=== PATIENT | male | born 1995 | race Caucasian/White ===

== ENCOUNTER 2024-11-11 06:15 | Observation (INO) ==
--- NOTE | 2024-11-11 06:34 | Emergency Department Note ---
Impression & Plan Abdominal pain ED Provider Note NAME: BENEDICTO FRANCIS AGE: 29 SEX: M : 1995 ARRIVES VIA: Walk-In INFORMANT: Patient, ED PROVIDER(S): Matthew Dietz DO CHIEF COMPLAINT: Abdominal pain HPI: The patient is a 29-year-old male who presented to the emergency department for abdominal pain. The patient started having abdominal pain at approximately 3:00 this morning. The patient has had nausea but no vomiting. He denies having any rectal bleeding or hematemesis. The patient denies having any recent trauma. He did feel warm but did not take his temperature. He does not think he has a fever. 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 He was a premature . The patient has not had problems since. He denies having any gallbladder problems. ROS: See above HPI for pertinent positives & negatives. A total of 10 systems reviewed and were otherwise negative. PAST MEDICAL HISTORY: See Below PAST SURGICAL HISTORY: See Below FAMILY HISTORY: See Below SOCIAL HISTORY: See Below HOME MEDICATIONS: See Below ALLERGIES: See Below VITALS: See Below PHYSICAL EXAMINATION: GENERAL: The patient is awake and alert. The patient appears anxious and uncomfortable. EYES: The conjunctivae are clear. The pupils are round and reactive. EARS, NOSE, MOUTH AND THROAT: The nose is without any evidence of any deformity. NECK: The neck is nontender and supple. RESPIRATORY: Normal respiratory effort is noted there is no evidence of wheezing rhonchi or rales CARDIOVASCULAR: Regular rate and rhythm noted there no murmurs rubs or gallops normal S1 normal S2. GASTROINTESTINAL: The abdomen is distended. There is upper abdominal tenderness specifically in the epigastric as well as right upper quadrant. There is some guarding in the epigastric region. MUSCULOSKELETAL/EXTREMITIES: There is no evidence of gross deformity full range of motion is noted in the hips and shoulders. SKIN: There is no obvious evidence of any rash. There are no petechiae, pallor or cyanosis noted. NEUROLOGIC: Patient is awake alert and oriented x3 MEDICAL DECISION MAKING: The patient is a 29-year-old male who presented to the emergency department for an evaluation of upper abdominal pain. The patient did have very significant abdominal pain on my physical exam. I discussed the patient's laboratory and radiographic studies with him. He was treated with pain medication in the emergency department. On reevaluation he was somewhat improved. CAT scan does appear to be consistent with a possible tip appendicitis although the patient's physical exam is not consistent with appendicitis. Because of this as well as the patient's history of necrotizing or colitis I did discuss his condition with the on-call general surgical group. They evaluated the patient in the emergency department. They agree that this does not appear to be consistent with an obvious appendicitis. For this reason they will observe the patient in the hospital to determine if any further intervention is necessary. Triage Nursing notes reviewed. Prior medical records reviewed Vital Signs: reviewed and remarkable for elevated blood pressure. Differential diagnosis: Etiologies such as appendicitis, diverticulitis, obstruction, inflammatory bowel disease, renal colic, PUD, biliary pathology, pancreatitis, mesenteric ischemia, aortic pathology, infections, genitourinary, UTI, perforated viscus, as well as others were entertained. ER treatment provided: See below Diagnostics interpreted by me: ECG: Pain Cardiac Monitoring: An order was placed for continuous cardiac monitoring. The monitor shows a rate of 93 bpm with sinus rhythm. Laboratory studies: As stated above and show below. Imaging studies: See below. Radiographic imaging was reviewed by myself Consultation(s): I discussed this case with Aparna who is on-call for general surgery. Past Med/Surg History Problem List (Updated 11/11/24 @ 11:34 by Matthew Dietz DO) Nausea Abdominal pain (Acute) Laceration of left index finger w/o foreign body w/o damage to nail (Acute) Medical History No pertinent past medical history Social History Smoking Status: Never smoker Tobacco Type: E-cigarettes / Vaping Preferred Language: Romanian Feels Safe at Home: Yes Allergies Allergies Allergy/AdvReac Type Severity Reaction Status Date / Time No Known Allergies Allergy Verified 11/11/24 08:30 Home Meds Home Medications Medication Instructions Recorded Confirmed loratadine 10 mg tablet (Claritin) 10 mg PO DAILY PRN Congestion 11/24/22 11/11/24 Results & Data (ED) Vital Signs Vital Signs - 24 hr 11/11/24 06:20 11/11/24 06:35 11/11/24 06:50 Temperature 36.5 C Temperature Source Temporal Artery Scan Pulse Rate 96 H 92 H Pulse Rate from SpO2 Sensor Pulse Rhythm Regular Pulse Strength Normal Respiratory Rate 18 Respiratory Effort / Characteristics Non-Labored Spontaneous Respiratory Depth Normal Respiratory Pattern Regular Blood Pressure 142/99 H Blood Pressure Mean 113 Blood Pressure Position Sitting Pulse Oximetry 98 97 Oxygen Delivery Method Room Air Nasal Cannula Oxygen Flow Rate 2 Sepsis Recent Fever Within 48 Hours Yes Sepsis New/Unexplained Change in Mental Status No Sepsis Action Taken by Nursing No Action Required 11/11/24 07:12 11/11/24 07:48 11/11/24 08:06 Temperature Temperature Source Pulse Rate 85 91 H Pulse Rate from SpO2 Sensor 83 Pulse Rhythm Pulse Strength Respiratory Rate 20 17 Respiratory Effort / Characteristics Respiratory Depth Respiratory Pattern Blood Pressure 128/81 Blood Pressure Mean 97 Blood Pressure Position Pulse Oximetry 98 Oxygen Delivery Method Oxygen Flow Rate Sepsis Recent Fever Within 48 Hours Sepsis New/Unexplained Change in Mental Status Sepsis Action Taken by Nursing 11/11/24 08:06 11/11/24 08:33 11/11/24 08:51 Temperature Temperature Source Pulse Rate 69 97 H 77 Pulse Rate from SpO2 Sensor 68 95 H 82 Pulse Rhythm Pulse Strength Respiratory Rate 13 14 Respiratory Effort / Characteristics Respiratory Depth Respiratory Pattern Blood Pressure Blood Pressure Mean Blood Pressure Position Pulse Oximetry 95 96 95 Oxygen Delivery Method Oxygen Flow Rate Sepsis Recent Fever Within 48 Hours Sepsis New/Unexplained Change in Mental Status Sepsis Action Taken by Nursing 11/11/24 09:00 11/11/24 09:03 11/11/24 09:30 Temperature Temperature Source Pulse Rate 104 H 100 H Pulse Rate from SpO2 Sensor 103 H 98 H Pulse Rhythm Pulse Strength Respiratory Rate 16 12 Respiratory Effort / Characteristics Respiratory Depth Respiratory Pattern Blood Pressure 150/117 H Blood Pressure Mean 129 Blood Pressure Position Pulse Oximetry 96 95 Oxygen Delivery Method Oxygen Flow Rate Sepsis Recent Fever Within 48 Hours Sepsis New/Unexplained Change in Mental Status Sepsis Action Taken by Usp Medications Current Medication List: was personally reviewed by me Laboratory Data Attestation: I reviewed the patient's lab results. 11/11/24 06:30 11/11/24 06:30 Lab Results 11/11/24 11/11/24 11/11/24 Range/Units 06:28 06:30 06:36 WBC 5.90 (4.8-10.8) K/ul RBC 5.33 (4.70-6.10) M/uL Hgb 15.9 (14.0-18.0) g/dl POC Hgb 16.0 (14.0-18.0) g/dl Hct 45.2 (42.0-52.0) % POC Hct 47 (42-52) % MCV 84.8 (80.0-100.0) fL MCH 29.8 (25.0-34.0) pg MCHC 35.2 (32.0-36.0) g/dL RDW Std Deviation 37.1 (36.4-46.3) fL RDW Coeff of Brandon 12.1 (11.5-14.5) % Plt Count 229 (130-400) K/uL MPV 10.5 (9.4-12.4) fL Immature Gran % (Auto) 0.2 % Neut % (Auto) 56.4 % Lymph % (Auto) 31.7 % Brooks % (Auto) 8.8 % Eos % (Auto) 2.4 % Baso % (Auto) 0.5 % Neut # (Auto) 3.33 (1.40-6.50) K/uL Lymph # (Auto) 1.87 (1.20-3.40) K/uL Brooks # (Auto) 0.52 (0.11-0.59) K/uL Eos # (Auto) 0.14 (0.00-0.50) K/uL Baso # (Auto) 0.03 (0.00-0.20) K/uL Immature Gran # (Auto) 0.01 (0.01-0.20) K/uL POC Sodium 141 (135-144) mmol/L Sodium 140 (136-145) mmol/L POC Potassium 3.9 (3.3-5.0) mmol/L Potassium 3.9 (3.5-5.1) mmol/L POC Chloride 104 (101-112) mmol/L Chloride 106 (98-107) mmol/L Carbon Dioxide 25 (21-32) mmol/L POC Total CO2 24 (24-31) mmol/L Anion Gap 9 (3-11) POC Anion Gap 18.0 (16-25) mmol/L POC BUN 15 (7-18) mg/dl BUN 15 (6-23) mg/dl Creatinine 0.83 (0.6-1.4) mg/dl POC Creatinine 0.9 (0.6-1.3) mg/dl Est Cr Clr Drug Dosing 156.8 ml/min eGFR 122.26 BUN/Creatinine Ratio 18.1 (10-20) Glucose 136 H (70-99(Fasting)) mg/dl POC Glucose (other) 135 H (70-99) mg/dl Calcium 9.1 (8.6-10.3) mg/dl POC Ioniz Calcium Sandy 1.16 (1.12-1.32) mmol/l Total Bilirubin 0.9 (0.2-1.0) mg/dl AST 24 (13-39) U/L ALT 36 (7-52) U/L Alkaline Phosphatase 69 (34-104) U/L Total Protein 8.0 (6.0-8.3) gm/dl Albumin 4.8 (3.4-5.0) gm/dl Globulin 3.2 (2.5-4.0) gm/dl Albumin/Globulin Ratio 1.5 (0.9-2) Lipase 15 (11-82) U/L Urine Color Yellow Urine Appearance Clear (Clear) Urine pH 5.5 (4.5-7.5) Ur Specific [place] >= 1.030 (1.000-1.030) Urine Protein 1+ H (Negative) Urine Glucose (UA) Negative (Negative) Urine Ketones Trace H (Negative) Urine Blood Negative (Negative) Urine Nitrite Negative (Negative) Urine Bilirubin Negative (Negative) Urine Urobilinogen Negative (Negative) Ur Leukocyte Esterase Negative (Negative) Urine RBC 0-2 (0-2) /hpf Urine WBC 0-5 (0-5) /hpf Ur Epithelial Cells 0-2 (0-2) /hpf Urine Bacteria 2+ H (None Seen) Hyaline Casts Present A (None Presnt) /lpf Urine Mucus Present A (None Prsent) Administered Medications Morphine Sulfate (Morphine Sulfate 4 Mg/Ml 1 Ml Carp\\Vial) 4 mg IV Q15M PRN PRN Reason: Pain Stop: 11/25/24 06:30 Last Admin: 11/11/24 10:28 Dose: 4 mg Documented By: Admin: 11/11/24 06:36 Dose: 4 mg Documented By: AMIRA Discontinued Medications Ioversol (Optiray 320 100ml) 94 ml IV ONCE ONE Stop: 11/11/24 07:19 Last Admin: 11/11/24 07:18 Dose: 94 ml Documented By: ALETHA Ondansetron HCl (Ondansetron Inj 2 Mg/Ml 2 Ml Vial) 4 mg IV NOW STA Stop: 11/11/24 06:32 Last Admin: 11/11/24 06:36 Dose: 4 mg Documented By: AMIRA Imaging Data Attestation: I personally reviewed and interpreted this imaging study as follows: My Impression: CT of the abdomen and pelvis was obtained in the emergency department. My interpretation is no free air or signs of bowel obstruction, final report below. Radiologist's Impression: Abdomen/Pelvis CT 11/11/24 07:06 EXAM: CT abd pelvis IV con only CLINICAL HISTORY: Severe abdominal pain with nausea. hx of constipation or diverticulitis. gastro. TECHNIQUE: CT of the abdomen and pelvis was performed with IV contrast was administrated 94ml Optiary 320 mg/ml, with the following protocol: axial images with, and reconstructed coronal and sagittal images.Vic of the following dose reduction techniques was utilized for this exam: Automated exposure control, adjustment of the mA and/or kV according to patient size, and use of iterative reconstruction. COMPARISON: None. FINDINGS: Abdomen: Liver: Enlarged in size measuring 18.8 cm with fat infiltration. No focal lesions, cysts, or masses were identified. Hepatic vasculature and biliary ducts are unremarkable. Gallbladder and Biliary System: The gallbladder is normal in size and shape. No wall thickening, pericholecystic fluid, or gallstones were identified. The common bile duct is normal in caliber without dilation. Pancreas: Pancreatic head, body, and tail are visualized and appear normal in size and density. No pancreatic masses or calcifications were noted. The pancreatic duct is not dilated. Spleen: Normal in size, shape, and density. No splenic lesions or masses were identified. Kidneys and Adrenal Glands: Simple cysts of 13 mm at lower pole of right kidney and upper pole of left kidney. Both kidneys are normal in size, shape, and position. Cortical thickness is within normal limits. No renal calculi or hydronephrosis. Adrenal glands are unremarkable with no evidence of masses or hyperplasia. Pelvis: Urinary Bladder: Normal in contour and wall thickness. No intraluminal lesions identified. Prostate: Normal in size and contour. No focal lesions or masses identified. Seminal Vesicles: Normal in size and appearance. No abnormalities noted. Rectum and Sigmoid Colon: Normal wall thickness and no evidence of mass. Peritoneal and Retroperitoneal Structures: No free fluid or abnormal fluid collections were identified within the abdomen or pelvis. No lymphadenopathy was noted. Bowel: Tip of appendix dilated measuring 13 mm in caliber and showing appendicolith in its non dilated segment. The visualized bowel loops are normal in caliber and appearance. No evidence of bowel obstruction or wall thickening. Bones and Soft Tissues: Pelvic bones and soft tissues are unremarkable. No fractures or abnormal masses were identified. IMPRESSION: 1. Tip of appendix dilated measuring 13 mm in caliber and showing appendicolith in its non dilated segment suggesting tip appendicitis. 2. Fatty hepatomegaly. 3. Bilateral renal simple cysts. Electronically signed by Simran Gerber 11-11-2024 08:49 AM Discharge Plan Visit Data Chief Complaint: Abdominal Pain Stated Complaint: ABD PAIN,NAUSEA,"TWISTING FEELING" ED Provider: Matthew Dietz Discharge Problem: Abdominal pain Patient Disposition: Being Evaluated by Hospitalist Discharge Problem: Abdominal pain Qualifiers: Abdominal location: upper abdomen, unspecified Qualified Code(s): R10.10 - Upper abdominal pain, unspecified
[2024-11-11] MEDS: MoRPHine SULFATE 4 MG/ML 1 ML CARP\\VIAL IV PRN (06:36)
[2024-11-11] MEDS: ONDANSETRON INJ 2 MG/ML 2 ML VIAL IV STA (06:36)
[2024-11-11 06:48] LABS: iSTAT Creatinine 0.9 mg/dl (0.6-1.3); iSTAT Ionized Calcium 1.16 mmol/l (1.12-1.32); iSTAT Potassium 3.9 mmol/L (3.3-5.0)
[2024-11-11 06:57] LABS: Basophils # (auto) 0.03 K/uL (0.00-0.20); Basophils % (auto) 0.5 %; Eosinophils # (auto) 0.14 K/uL (0.00-0.50); Eosinophils % (auto) 2.4 %; Hematocrit (blood only) 45.2 % (42.0-52.0); Hemoglobin 15.9 g/dl (14.0-18.0); Immature Granulocytes # (auto) 0.01 K/uL (0.01-0.20); Immature Granulocytes % (auto) 0.2 %; Lymphocytes # (auto) 1.87 K/uL (1.20-3.40); Lymphocytes % (auto) 31.7 %; Mean Corpuscular Hemoglobin 29.8 pg (25.0-34.0); Mean Corpuscular Hgb Conc 35.2 g/dL (32.0-36.0); Mean Corpuscular Volume 84.8 fL (80.0-100.0); Mean Platelet Volume 10.5 fL (9.4-12.4); Monocytes # (auto) 0.52 K/uL (0.11-0.59); Monocytes % (auto) 8.8 %; Neutrophils # (auto) 3.33 K/uL (1.40-6.50); Neutrophils % (auto) 56.4 %; Platelet Count 229 K/uL (130-400); RDW Coefficient of Variation 12.1 % (11.5-14.5); RDW Standard Deviation 37.1 fL (36.4-46.3); Red Blood Count 5.33 M/uL (4.70-6.10)
[2024-11-11 07:03] LABS: Albumin Globulin Ratio 1.5 (0.9-2); Albumin Level 4.8 gm/dl (3.4-5.0); BUN Creatinine Ratio 18.1 (10-20); Bilirubin,Total 0.9 mg/dl (0.2-1.0); Calcium 9.1 mg/dl (8.6-10.3); Creatinine Clr Calc Pharmacy 156.8 ml/min; Globulin 3.2 gm/dl (2.5-4.0); Potassium 3.9 mmol/L (3.5-5.1)
[2024-11-11 07:07] LABS: Appearance Urine Clear (Clear); Bilirubin Urine Negative (Negative); Blood Urine Negative (Negative); Color Urine Yellow; Glucose Urine UA Negative (Negative); Ketones Urine Trace (Negative); Leukocyte Esterase Urine Negative (Negative); Nitrite Urine Negative (Negative); Protein Urine 1+ (Negative); Specific Gravity Urine >= 1.030 (1.000-1.030); Urobilinogen Urine Negative (Negative); pH Urine 5.5 (4.5-7.5)
[2024-11-11 07:18] LABS: Bacteria Urine 2+ (None Seen); Epithelial Cell Urine 0-2 /hpf (0-2); RBC Urine 0-2 /hpf (0-2); WBC Urine 0-5 /hpf (0-5)
[2024-11-11] MEDS: OPTIRAY 320 100ml IV ONE (07:18)
[2024-11-11 07:19] LABS: Hyaline Casts Urine Present /lpf (None Presnt); Mucus Urine Present (None Prsent)
--- NOTE | 2024-11-11 08:49 | CT Scan Report ---
EXAM: CT abd pelvis IV con only CLINICAL HISTORY: Severe abdominal pain with nausea. hx of constipation or diverticulitis. gastro. TECHNIQUE: CT of the abdomen and pelvis was performed with IV contrast was administrated 94ml Optiary 320 mg/ml, with the following protocol: axial images with, and reconstructed coronal and sagittal images.Vic of the following dose reduction techniques was utilized for this exam: Automated exposure control, adjustment of the mA and/or kV according to patient size, and use of iterative reconstruction. COMPARISON: None. FINDINGS: Abdomen: Liver: Enlarged in size measuring 18.8 cm with fat infiltration. No focal lesions, cysts, or masses were identified. Hepatic vasculature and biliary ducts are unremarkable. Gallbladder and Biliary System: The gallbladder is normal in size and shape. No wall thickening, pericholecystic fluid, or gallstones were identified. The common bile duct is normal in caliber without dilation. Pancreas: Pancreatic head, body, and tail are visualized and appear normal in size and density. No pancreatic masses or calcifications were noted. The pancreatic duct is not dilated. Spleen: Normal in size, shape, and density. No splenic lesions or masses were identified. Kidneys and Adrenal Glands: Simple cysts of 13 mm at lower pole of right kidney and upper pole of left kidney. Both kidneys are normal in size, shape, and position. Cortical thickness is within normal limits. No renal calculi or hydronephrosis. Adrenal glands are unremarkable with no evidence of masses or hyperplasia. Pelvis: Urinary Bladder: Normal in contour and wall thickness. No intraluminal lesions identified. Prostate: Normal in size and contour. No focal lesions or masses identified. Seminal Vesicles: Normal in size and appearance. No abnormalities noted. Rectum and Sigmoid Colon: Normal wall thickness and no evidence of mass. Peritoneal and Retroperitoneal Structures: No free fluid or abnormal fluid collections were identified within the abdomen or pelvis. No lymphadenopathy was noted. Bowel: Tip of appendix dilated measuring 13 mm in caliber and showing appendicolith in its non dilated segment. The visualized bowel loops are normal in caliber and appearance. No evidence of bowel obstruction or wall thickening. Bones and Soft Tissues: Pelvic bones and soft tissues are unremarkable. No fractures or abnormal masses were identified. IMPRESSION: 1. Tip of appendix dilated measuring 13 mm in caliber and showing appendicolith in its non dilated segment suggesting tip appendicitis. 2. Fatty hepatomegaly. 3. Bilateral renal simple cysts. Electronically signed by Simran Gerber 11-11-2024 08:49 AM
--- NOTE | 2024-11-11 10:28 | Surgery Consultation ---
Date of Consultation November 11, 2024 Assessment & Plan (1) Abdominal pain: Doubt appendicitis. CT scan reviewed. Will admit the patient for observation and symptom control. I also want to obtain an ultrasound of his gallbladder. I am not going to give him antibiotics and we will reevaluate him over the next 24 hours. If his symptoms worsen we may end up performing a laparoscopy/appendectomy. He agrees with the plan. (2) Nausea: History of Present Illness History of Present Illness Terrence is a pleasant 29-year-old male who has had a couple days of vague abdominal discomfort potential low-grade fever. Last night in the middle of the night he woke up to acute upper abdominal pain primarily in the epigastric with radiation mostly to the left upper quadrant. He does have associated nausea although no vomiting. Allergies Allergy/AdvReac Type Severity Reaction Status Date / Time No Known Allergies Allergy Verified 11/11/24 08:30 Home Medications Medication Instructions Recorded Confirmed Type loratadine 10 mg tablet (Claritin) 10 mg PO DAILY PRN Congestion 11/24/22 11/11/24 History Patient History Medical History No pertinent past medical history Social History Smoking Status: Never smoker Tobacco Type: E-cigarettes / Vaping Preferred Language: Peruvian Feels Safe at Home: Yes Review of Systems Review of Systems: All systems reviewed & are unremarkable except as noted in HPI & below Physical Exam Constitutional: WD/WN, vitals as above no acute distress and not ill appearing Eyes: PERRL, conjunctivae normal, anicteric sclerae EOM intact bilaterally ENMT: external ear and nose normal, oropharynx normal Ears: no hearing impairment Neck: trachea midline, no thyromegaly Respiratory: normal respiratory effort; no respiratory distress and does not use accessory muscles Cardiovascular: Rate/Rhythm: regular rate and regular rhythm Gastrointestinal (Abdomen): Soft. Mild epigastric tenderness to palpation. No guarding or rebound. N egative right lower quadrant tenderness. Skin: no rashes, warm and dry Psychiatric: Orientation: alert, oriented x 3 and cooperative Results & Data Vital Signs (Past 12 Hours) Vital Signs Temp Pulse Resp BP Pulse Ox O2 Del Method O2 Flow Rate 11/11/24 09:30 100 H 12 95 11/11/24 09:03 104 H 16 96 11/11/24 09:00 150/117 H 11/11/24 08:51 77 95 11/11/24 08:33 97 H 14 96 11/11/24 08:06 69 13 95 11/11/24 08:06 128/81 11/11/24 07:48 91 H 17 11/11/24 07:12 85 20 98 11/11/24 06:50 97 Nasal Cannula 2 11/11/24 06:35 92 H 11/11/24 06:20 36.5 C 96 H 18 142/99 H 98 Room Air PG Care Time/CCT Total # of Minutes Spent Total Time Spent with Patient: Total time spent is greater than 50% in coordination of care (as documented) at patient's floor/unit and/or counseling patient: Coding Level of Care Code 63591 OFFICE CONSULT LVL Diagnoses Abdominal pain R10.9 Nausea R11.0
[2024-11-11] MEDS ORDERED: HYDROmorphone INJ 0.5 MG/0.5 ML SYR IV PRN (11:35)
--- NOTE | 2024-11-11 11:47 | Ultrasound Report ---
US liver CLINICAL HISTORY: upper abdominal pain and nausea COMPARISON STUDY: CT of the abdomen and pelvis performed earlier today. FINDINGS: Hepatic echogenicity is increased. This is consistent with hepatic steatosis. There is fatt y sparing within the gallbladder fossa. There is no biliary ductal dilatation. The gallbladder is nor mal. There are no gallstones. There is no biliary ductal dilatation. A 2.3 cm anechoic right lower po le renal lesion favors a cyst. Pancreatic body is normal. Head and tail are obscured by overlying bow el gas. IMPRESSION: 1. No gallstones or biliary ductal dilatation. 2. Increased hepatic echogenicity consistent with hepatic steatosis. ACT 112: Negative or not required by law. Electronically signed by: Mauro Mccormick M.D. 11/11/2024 11:45 AM
[2024-11-11] MEDS: SODIUM CHLORIDE 0.9% 1,000 ML IV SCH (13:32)
[2024-11-11] MEDS: HYDROmorphone INJ 0.5 MG/0.5 ML SYR IV PRN (13:33)
[2024-11-12] MEDS: ACETAMINOPHEN 1,000 MG/100 ML VIAL IV PRN (04:43)
[2024-11-12 08:14] LABS: Basophils # (auto) 0.03 K/uL (0.00-0.20); Basophils % (auto) 0.3 %; Eosinophils # (auto) 0.04 K/uL (0.00-0.50); Eosinophils % (auto) 0.5 %; Hematocrit (blood only) 39.5 % (42.0-52.0); Hemoglobin 13.8 g/dl (14.0-18.0); Immature Granulocytes # (auto) 0.02 K/uL (0.01-0.20); Immature Granulocytes % (auto) 0.2 %; Lymphocytes # (auto) 1.97 K/uL (1.20-3.40); Lymphocytes % (auto) 22.9 %; Mean Corpuscular Hemoglobin 30.7 pg (25.0-34.0); Mean Corpuscular Hgb Conc 34.9 g/dL (32.0-36.0); Mean Platelet Volume 10.7 fL (9.4-12.4); Monocytes # (auto) 0.81 K/uL (0.11-0.59); Monocytes % (auto) 9.4 %; Neutrophils # (auto) 5.74 K/uL (1.40-6.50); Neutrophils % (auto) 66.7 %; Platelet Count 181 K/uL (130-400); RDW Coefficient of Variation 12.1 % (11.5-14.5); RDW Standard Deviation 39.3 fL (36.4-46.3); Red Blood Count 4.49 M/uL (4.70-6.10); White Blood Count 8.61 K/ul (4.8-10.8)
[2024-11-12 08:49] LABS: Albumin Globulin Ratio 1.6 (0.9-2); Albumin Level 4.1 gm/dl (3.4-5.0); BUN Creatinine Ratio 13.5 (10-20); Bilirubin,Total 1.6 mg/dl (0.2-1.0); C Reactive Protein 6.88 mg/dl (0-0.5); Calcium 8.4 mg/dl (8.6-10.3); Creatinine Clr Calc Pharmacy 174.7 ml/min; Globulin 2.6 gm/dl (2.5-4.0); Potassium 3.9 mmol/L (3.5-5.1); Total Protein 6.7 gm/dl (6.0-8.3)
--- NOTE | 2024-11-12 09:15 | Surgery Progress Note ---
Date of Service November 12, 2024 Assessment & Plan (1) Abdominal pain: Plan: pt here with upper abdominal pain + nausea founded to have questionable tip appendicitis on CT scan. no RLQ ttp in ER therefore we admitted the pt for observation WBC 8.6 and patient is afebrile off of antibiotics. CRP 6 and Tb 1.6, other LFTs within normal limits RUQ US obtained yesterday was negative for stones, biliary ductal dilation or stones This AM pain is overall improved from yesterday, but reports it's intermittent and he continues w/ nausea although he is hungry Will check up on pt later this AM and discuss further plan of care with surgeon as above. feeling overall better. Tbili up to 1.6. will obtain MRCP. NPO for now. if MRCP negative will give clears and repeat labs tomorrow. (2) Nausea: Admission and Anticipated Discharge Date Admission Date: November 11, 2024 Subjective Patient feels somewhat better overall. He reports his upper abdominal pain is better than yesterday but has been coming and going. No RLQ discomfort reported. He remains with nausea, no vomiting. He does report hunger Physical Exam Physical Exam: awake, alert Gastrointestinal (Abdomen): Percussion/Palpation: abdomen soft; abdomen nontender (abdominal discomfort improved from yesterday in epigastric region. ) no localized rlq ttp, mild R flank discomfort Results & Data Vital Signs (Past 12 Hours) Vital Signs Temp Pulse Resp BP Pulse Ox O2 Del Method 11/12/24 07:15 98.2 F 105 H 20 124/73 96 Room Air PG Care Time/CCT Total # of Minutes Spent Total Time Spent with Patient: Total time spent is greater than 50% in coordination of care (as documented) at patient's floor/unit and/or counseling patient: Coding Level of Care Code 60756 SUB INP/OBS CARE 11/28MIN Diagnoses Abdominal pain R10.10 Abdominal location: upper abdomen, unspecified Nausea R11.0 (1) Abdominal pain Abdominal location: upper abdomen, unspecified Qualified Code(s): R10.10 - Upper abdominal pain, unspecified
--- NOTE | 2024-11-12 12:14 | Magnetic Resonance Report ---
MRCP CLINICAL HISTORY: Tb elevated w/ epigastric pain,eval for choledocholithiasis. TECHNIQUE: Utilizing a 1.5 Nadira magnet and dedicated coil, multiplanar, multiecho imaging of the upp er abdomen was performed utilizing heavily T2 weighted pulsing sequences without IV contrast. COMPARISON STUDY: CT of the abdomen and pelvis and right upper quadrant ultrasound November 11, 2024. FINDINGS: There is no intra or extrahepatic biliary ductal dilatation. The common bile duct measures 4 mm in caliber. No common bile duct calculi identified although this exam is mildly compromised by m otion artifact. No gallstones are identified. The gallbladder is not distended. A few subcentimeter T 2 hyperintense inferior right hepatic lobe lesions are suboptimally assessed on unenhanced exam but l ikely benign. There is no pancreatic ductal dilatation. There is no peripancreatic fluid. T2 hyperint ense bilateral renal lesions are also suboptimally assessed on unenhanced exam however favors cysts. Right lower pole renal lesion were shown to represent a cyst on prior ultrasound. There is no abdomin al lymphadenopathy or ascites. Caliber of visualized small and large bowel are normal. Hepatic steato sis is better depicted on prior ultrasound. IMPRESSION: 1. No biliary ductal dilatation. No common bile duct calculi identified although exam mildly compromi sed by motion artifact. 2. No gallstones by MRI. No evidence for acute cholecystitis. ACT 112: Negative or not required by law. Electronically signed by: Mauro Mccormick M.D. 11/12/2024 12:12 PM
[2024-11-12] MEDS: OPTIRAY 320 100ml IV ONE (21:25)
--- NOTE | 2024-11-12 22:55 | CT Scan Report ---
Exam(s): CT ABDOMEN + PELVIS With Contrast IV Amt: 90 ml optiray 320 EXAM: CT Abdomen and Pelvis With Intravenous Contrast CLINICAL HISTORY: Reason for exam: repeat CT to eval for possibly acute appendicitis. TECHNIQUE: Axial computed tomography images of the abdomen and pelvis with intravenous contrast. CTDI is 28.1 mGy and DLP is 1420.74 mGy-cm. Automated exposure control was utilized for the study. A dose lowering technique was utilized adhering to the principles of ALARA. CONTRAST: Patient received 90 ml optiray 320 of IV contrast COMPARISON: CT abdomen/pelvis on 11/11/2024. Same day MRCP. FINDINGS: Lung bases: Unremarkable. No mass. No consolidation. ABDOMEN: Liver: Hepatic steatosis. Hepatomegaly. Gallbladder and bile ducts: Unremarkable. No calcified stones. No ductal dilation. Pancreas: Unremarkable. No mass. No ductal dilation. Spleen: Unremarkable. No splenomegaly. Adrenals: Unremarkable. No mass. Kidneys and ureters: Small hypodense lesions in the kidneys could be further evaluated with ultrasound, measuring greater than simple fluid attenuation. No hydronephrosis or obstructing ureteral stone. Stomach and bowel: Evaluation of the stomach is limited by underdistention. No mucosal thickening. No bowel obstruction. PELVIS: Appendix: Increased inflammatory changes and fluid along the appendix in the right lower quadrant. Appendicolith in the appendix but findings are concerning for acute appendicitis. Bladder: Mild prominence of the posterior aspect of the bladder wall may represent reactive inflammatory change. Reproductive: Unremarkable as visualized. ABDOMEN and PELVIS: Intraperitoneal space: Unremarkable. No free air. No significant fluid collection. Bones/joints: No acute fracture. No dislocation. Soft tissues: Small fat-containing right inguinal hernia. Vasculature: Unremarkable. No abdominal aortic aneurysm. Lymph nodes: Unremarkable. No enlarged lymph nodes. IMPRESSION: 1. Increased inflammatory changes and fluid along the appendix in the right lower quadrant. Appendicolith in the appendix but findings are concerning for acute appendicitis. 2. Hepatic steatosis. Hepatomegaly. Communications: Verify Receipt Electronically signed by: Pam Jolly M.D. 11/12/24 22:54 PM
--- NOTE | 2024-11-13 01:08 | Communication Note ---
Date of Service: November 12, 2024 Was called last evening around 1999 in regards to patient having worsening abdominal pain and increased HR into the 110s. The patient was also noted to h ave a low-grade fever later in the afternoon as well. Patient was seen and evaluated at bedside around 2029 this evening. He is nontoxic appearing and was resting comfortably. Patient states his abdominal pain is now mostly in the RLQ and is moderately tender with palpation. He also tells me he has been intermittently nauseous throughout the afternoon and evening. Discussed with attending surgeon, Dr. Fraga, and recommended patient undergoing repeat CT A/P this evening with results as below: IMPRESSION: 1. Increased inflammatory changes and fluid along the appendix in the right lower quadrant. Appendicolith in the appendix but findings are concerning for acute appendicitis. 2. Hepatic steatosis. Hepatomegaly. Given imaging findings along with patient's clinical exam, we will tentatively plan for surgical intervention today. Keep NPO, IV fluids to restart, and continue pain control. Will also initiate antibiotics.
[2024-11-13] MEDS: PIPERACILLIN/TAZOBACTAM 4.5 GM/100 ML BAG IV ONE (01:35)
[2024-11-13] MEDS: SODIUM CHLORIDE 0.9% 1,000 ML IV SCH (01:35)
[2024-11-13] MEDS: PIPERACILLIN/TAZOBACTAM 4.5 GM/100 ML BAG IV SCH (05:47)
[2024-11-13] MEDS: ONDANSETRON INJ 2 MG/ML 2 ML VIAL IV PRN (05:58)
[2024-11-13 07:25] LABS: Basophils # (auto) 0.03 K/uL (0.00-0.20); Basophils % (auto) 0.3 %; Eosinophils # (auto) 0.01 K/uL (0.00-0.50); Eosinophils % (auto) 0.1 %; Hematocrit (blood only) 36.9 % (42.0-52.0); Hemoglobin 12.9 g/dl (14.0-18.0); Immature Granulocytes # (auto) 0.04 K/uL (0.01-0.20); Immature Granulocytes % (auto) 0.4 %; Lymphocytes # (auto) 2.13 K/uL (1.20-3.40); Lymphocytes % (auto) 21.2 %; Mean Corpuscular Hemoglobin 30.4 pg (25.0-34.0); Mean Platelet Volume 11.1 fL (9.4-12.4); Monocytes # (auto) 0.91 K/uL (0.11-0.59); Monocytes % (auto) 9.1 %; Neutrophils # (auto) 6.93 K/uL (1.40-6.50); Neutrophils % (auto) 68.9 %; Platelet Count 164 K/uL (130-400); RDW Coefficient of Variation 11.9 % (11.5-14.5); RDW Standard Deviation 38.1 fL (36.4-46.3); Red Blood Count 4.24 M/uL (4.70-6.10); White Blood Count 10.05 K/ul (4.8-10.8)
[2024-11-13 07:58] LABS: Albumin Globulin Ratio 1.4 (0.9-2); Albumin Level 3.9 gm/dl (3.4-5.0); BUN Creatinine Ratio 8.8 (10-20); Bilirubin,Total 1.7 mg/dl (0.2-1.0); Calcium 8.1 mg/dl (8.6-10.3); Creatinine Clr Calc Pharmacy 161.6 ml/min; Globulin 2.8 gm/dl (2.5-4.0); Potassium 3.6 mmol/L (3.5-5.1); Total Protein 6.7 gm/dl (6.0-8.3)
--- NOTE | 2024-11-13 07:59 | Surgery Progress Note ---
Date of Service November 13, 2024 Assessment & Plan (1) Abdominal pain: Plan: Pt here initially here with epigastric abdominal pain and nausea found to have evidence of possible acute appy on admitting CT scan patient has not developed true RLQ discomfort until last night; work up for gallbladder etiology negative by RUQ US and MRCP he has been having some low grade temps with normal WBC counts (today 10) CT scan repeated overnight revealing worsening inflammation in the RLQ with associated appendicolith and concern for acute appy given confirmation on repeat CT as well as new/worsening RLQ pain we will proceed with lap appy today keep npo as above. discussed ct findings. discussed options/risks ( bleeding/infection/injury to an organ such as bowel/bladder/ureter, dvt/pe/mi/cva etc...). questions answered. will proceed this am with Lap appy (2) Nausea: Admission and Anticipated Discharge Date Admission Date: November 11, 2024 Subjective Patient reported RLQ pain overnight. He does feel a bit better this Am but has some discomfort in the RLQ which is somewhat better than overnight. some mild nausea controlled with meds Physical Exam Physical Exam: awake/alert, no distress Gastrointestinal (Abdomen): Percussion/Palpation: + abdomen tender (mild rlq ttp, epigastric ttp improved) and abdomen soft Results & Data Vital Signs (Past 12 Hours) Vital Signs Temp Pulse Resp BP Pulse Ox O2 Del Method 11/13/24 07:33 100.9 F H 112 H 20 114/71 91 Room Air 11/12/24 21:00 Room Air 11/12/24 19:54 99.8 F H 111 H 18 141/90 H 96 Room Air PG Care Time/CCT Total # of Minutes Spent Total Time Spent with Patient: Total time spent is greater than 50% in coordination of care (as documented) at patient's floor/unit and/or counseling patient: Coding Level of Care Code 43108 SUB INP/OBS CARE 11/28MIN Diagnoses Abdominal pain R10.10 Abdominal location: upper abdomen, unspecified Nausea R11.0 (1) Abdominal pain Abdominal location: upper abdomen, unspecified Qualified Code(s): R10.10 - Upper abdominal pain, unspecified
--- NOTE | 2024-11-13 08:22 | Anesthesiology Consultation ---
Date of Service November 13, 2024 Assessment & Plan Chart Review Chart Review: Acceptable Risk for Surgery and Patient NOT seen in Pre Admission Testing Consults Requested none History Surgery Operation Date: 11/13/24 07:00 Proposed Procedures p Laparoscopic Appendectomy - Bob Fraga DO Height/Weight Height: 5 ft 7 in Weight: 108.6 kg Allergies Allergy/AdvReac Type Severity Reaction Status Date / Time No Known Allergies Allergy Verified 11/11/24 08:30 Medications Home Medications Medication Instructions Recorded Confirmed Last Taken loratadine 10 mg tablet (Claritin) 10 mg PO DAILY PRN Congestion 11/24/22 11/11/24 Unknown Active Medications Generic Name Dose Route Start Last Admin Trade Name Freq PRN Reason Stop Dose Admin Hydromorphone HCl 0.5 mg 11/11/24 11:35 11/13/24 05:57 Hydromorphone Inj 0.5 Mg/0.5 Ml Syr IV 11/25/24 11:34 0.5 mg Q3H PRN Administration Pain (6,7,8,9,10) Acetaminophen 1,000 mg in 100 mls @ 400 mls/hr 11/11/24 11:35 11/12/24 16:24 Ofirmev IV 11/14/24 11:34 Infused Q8H PRN Infusion mild pain or fever Piperacillin Sod/Tazobactam Sod 4.5 gm in 100 mls @ 25 mls/hr 11/13/24 06:00 11/13/24 05:47 Zosyn IV 11/23/24 05:59 25 mls/hr Q8H JESSICA Administration Protocol Sodium Chloride 1,000 mls @ 125 mls/hr 11/13/24 01:15 11/13/24 01:35 Nss IV 11/14/24 01:14 125 mls/hr .Q8H JESSICA Administration Ondansetron HCl 4 mg 11/11/24 11:35 11/13/24 05:58 Ondansetron Inj 2 Mg/Ml 2 Ml Vial IV 12/11/24 11:34 4 mg Q4H PRN Administration Nausea And Vomiting Past Medical History Medical History No pertinent past medical history Social History Smoking Status: Current every day smoker Do You Dip or Chew Tobacco: No Hx Alcohol Use: No Hx Substance Use: No Physical Exam Vital Signs Last Vital Signs Temp 38.3 C H 11/13/24 07:33 Pulse 112 H 11/13/24 07:33 Resp 20 11/13/24 07:33 BP 114/71 11/13/24 07:33 Pulse Ox 91 11/13/24 07:33 O2 Del Method Room Air 11/13/24 07:33 O2 Flow Rate 2 11/11/24 15:00 Testing Laboratory Results 11/13/24 06:20 11/13/24 06:20 Urine Color Yellow 11/11/24 06:28 Urine Appearance Clear (Clear) 11/11/24 06:28 Urine pH 5.5 (4.5-7.5) 11/11/24 06:28 Ur Specific [place] >= 1.030 (1.000-1.030) 11/11/24 06:28 Urine Protein 1+ (Negative) H 11/11/24 06:28 Urine Glucose (UA) Negative (Negative) 11/11/24 06:28 Urine Ketones Trace (Negative) H 11/11/24 06:28 Urine Nitrite Negative (Negative) 11/11/24 06:28 Ur Leukocyte Esterase Negative (Negative) 11/11/24 06:28 Urine RBC 0-2 /hpf (0-2) 11/11/24 06:28 Urine WBC 0-5 /hpf (0-5) 11/11/24 06:28 Ur Epithelial Cells 0-2 /hpf (0-2) 11/11/24 06:28 11/11/24 06:28 Urine Culture - Preliminary Urine,Clean Catch No growth - Less than 1,000 colonies/mL, Final report to follow.
[2024-11-13] MEDS ORDERED: LIDOCAINE 2% 2 ML VIAL/AMP(20MG/ML) INFIL ONE (08:45)
[2024-11-13] MEDS ORDERED: PROPOFOL IV EMULSION 10 MG/ML 20 ML VIAL IV ONE (08:45)
[2024-11-13] MEDS ORDERED: ONDANSETRON INJ 2 MG/ML 2 ML VIAL ONE (08:45)
[2024-11-13] MEDS ORDERED: fentaNYL citrate PF 100 MCG/2 ML VIAL ONE (08:45)
[2024-11-13] MEDS ORDERED: DEXAMETHASONE SOD INJ 4 MG/ML VIAL ONE (08:45)
[2024-11-13] MEDS ORDERED: MIDAZOLAM HCL 1 MG/ML 2ML VIAL ONE (08:46)
[2024-11-13] MEDS ORDERED: ROCURONIUM BROMIDE 10 MG/ML 5 ML VIAL IV ONE ×2 (08:47→10:27)
[2024-11-13] MEDS ORDERED: ePHEDrine sulfate 50 MG/ML AMP IV PRN (09:32)
[2024-11-13] MEDS ORDERED: DROPERIDOL 5 MG/2 ML VIAL IV PRN (09:32)
[2024-11-13] MEDS ORDERED: ATROPINE SULFATE 0.1 MG/ML 10ML SYR IV PRN (09:32)
[2024-11-13] MEDS: BUPIVACAINE/EPINEPHRINE 0.25% 1:200,000 30 ML VIAL ONE (10:36)
[2024-11-13] MEDS ORDERED: SUGAMMADEX SODIUM 200 MG/2 ML VIAL IV ONE (10:54)
[2024-11-13] MEDS ORDERED: KETOROLAC 30 MG/ML VIAL ONE (10:55)
[2024-11-13] MEDS: BUPIVACAINE/EPINEPHRINE 0.5% MPF 1:200,000 30 ML VIAL ONE (10:59)
--- NOTE | 2024-11-13 11:11 | Operative Report ---
PG Post Operative Report Pre & Post Diagnosis Operation Date: 11/13/24 07:00 Pre-Op Diagnosis: Acute appendicitis Post-Op Diagnosis: appendicitis; Frozen abdomen/extensive adhesions I identified the patient and participated in the time-out.: Yes Procedure Operation Date: 11/13/24 07:00 Actual Procedures p Laparoscopy with aborted attempted appendectomy(Not Applicable) - Bob Fraga DO Surgeon Bob Fraga DO [employer] Supervisor mateus Soto Estimated Blood Loss 5 Findings Consistent with Post-Op Diagnosis frozen abdomen Specimens none Description of Procedure After informed consent was obtained the patient was taken to the operating room and placed in supine position. After successful intubation the abdomen was shaved and sterilely prepped and draped in usual fashion. I began by making a supraumbilical incision with an 11 blade scalpel. This was carried down through the soft tissue using cautery. The anterior fascia was opened using cautery and two #0 Vicryl stay sutures were placed. Peritoneum was elevated with hemostats and incised under direct vision using Metzenbaum scissor. We immediately encountered small bowel as well as dense adhesions. I was unable to enter the abdominal cavity. At this point I decided to reattempt placement of the trocar in the left upper quadrant. Under the left rib cage and made another incision. Again we open the fascia was and cautery and placed two #0 Vicryl stay sutures. I was able to elevate the peritoneum. We incised under direct vision. I was able to place a Field trocar and insufflated the abdomen. I inserted the camera. What I encountered essentially was a completely frozen abdomen from just below the gallbladder through the entire lower two thirds of the abdomen. There were extremely dense adhesions involving small and large bowel to the anterior abdominal wall as well as the sidewalls. There is no free fluid or peritonitis is visible. At this point after some consideration I decided that the risk benefit would favor aborting the procedure and placing the patient on IV antibiotics. The appendix had not been rupture on recent imaging. Clinically he was doing fine without peritonitis as well. If he deteriorates clinically we would likely have to perform a full laparotomy which would be very extensive fraught with potential complications. I removed both trocars. I closed both fascia incisions with 0 Vicryl in [id number] fashion. Wounds were irrigated and closed using 4-0 Monocryl. Marcaine with epinephrine was injected around them and skin glue used as a dressing. Patient was awakened extubated and transferred recovery in stable condition. My physician assistant drafter was present through the entire case and assisted in all aspects I attest to the content of the Intraoperative Record and any orders documented therein. Any exceptions are noted below.
[2024-11-13] MEDS: HYDROmorphone INJ 2 MG/ML SYR/VIAL IV PRN (11:48)
--- NOTE | 2024-11-13 11:51 | Anesthesiology Progress Note ---
Date of Service November 13, 2024 Anesthesia Post Procedure Vital Signs Vital Signs: Temp Pulse Pulse Resp BP BP Pulse Ox 11/13/24 11:35 112 H 22 112/79 92 11/13/24 11:25 103 H 23 129/89 90 11/13/24 11:18 37.6 C H 103 H 18 121/81 92 11/13/24 09:14 37.2 C 108 H 18 125/83 93 11/13/24 07:33 38.3 C H 112 H 20 114/71 91 11/12/24 21:00 11/12/24 19:54 37.7 C H 111 H 18 141/90 H 96 11/12/24 17:50 37.8 C H 116 H 95 11/12/24 15:47 39.2 C H 120 H 18 136/69 95 O2 Del Method O2 Flow Rate 11/13/24 11:35 Oxymask 6 11/13/24 11:25 Oxymask 6 11/13/24 11:18 Oxymask 6 11/13/24 09:14 Room Air 11/13/24 07:33 Room Air 11/12/24 21:00 Room Air 11/12/24 19:54 Room Air 11/12/24 17:50 Room Air 11/12/24 15:47 Room Air Pain Intensity Upper Abdomen: Pain Intensity: 5 Transfer of Care Handoff Completed per policy Notes Mental Status: alert / awake / arousable Patient Amnestic to Procedure: Yes Nausea / Vomiting: adequately controlled Pain: adequately controlled Airway Patency, RR, SpO2: stable & adequate BP & HR: stable & adequate Hydration State: stable & adequate Anesthetic Complications: no major complications apparent and Pt Satisfied with anesthetic care
[2024-11-13] MEDS ORDERED: oxyCODONE HCL IR 5 MG TAB (IMMEDIATE RELEASE) PO PRN (12:31)
[2024-11-13] MEDS: oxyCODONE HCL IR 5 MG TAB (IMMEDIATE RELEASE) PO PRN (17:50)
--- NOTE | 2024-11-14 06:29 | Surgery Progress Note ---
Date of Service November 14, 2024 Assessment & Plan (1) Abdominal pain: Plan: -Patient here initially with epigastric abdominal pain and nausea found to have evidence of possible acute appy on admitting CT scan. He underwent laparoscopy with aborted attempted appendectomy yesterday with Dr. Fraga however due to findings of frozen abdomen the case was aborted. -AM labs pending, will continue IV antibiotics for now. Patient will require PO antibiotics at discharge -Pain controlled at this time -Incisions are c/d/i -Tolerating clear liquids without any issues of worsening pain, N/V. Once AM labs are back we will consider advancing diet and see how he does. If continues to improve anticipate discharge by the end of the weekend. (2) Nausea: Admission and Anticipated Discharge Date Admission Date: November 11, 2024 Supervising Physician Co-Signing Physician Notes Patient seen examined, labs reviewed, agree with above. POD #1 attempted laparoscopic appendectomy but aborted due to frozen abdomen. He is sore from the surgery sites, and specifically complains of pain with urination secondary to Asher catheter placement. The pain he had upon arrival is not currently present. On exam he is afebrile stable vitals, his abdomen is soft, incisions without infection, appropriately tender to palpation. WBC 12. Given slight bump in his WBC, will continue with IV antibiotics. We will advance his diet. Potential discharge tomorrow on oral antibiotics. Will follow-up with Dr. Fraga as an outpatient. Subjective Patient underwent laparoscopy with aborted attempted appendectomy yesterday with Dr. Fraga, unfortunately he was found to have a frozen abdomen. Patient post- operatively has been on IV antibiotics and was resumed on clear liquids. Patient this morning states he is feeling well, is sore at incision sites, but overall denies any worsneing abdominal pain, N/V. +passing gas AM labs pending however patient afebrile Physical Exam Constitutional: WD/WN, vitals as above Respiratory: normal respiratory effort, lungs clear to auscultation Cardiovascular: RRR, no murmur, no edema Gastrointestinal (Abdomen): Abdomen soft, appropriate TTP over surgical sites, incisions are c/d/i without any signs of infection. Mild TTP in the RLQ however no rebound or guarding. Results & Data Vital Signs (Past 12 Hours) Vital Signs Temp Pulse Resp BP Pulse Ox O2 Del Method 11/14/24 04:23 36.9 C 101 H 14 100/62 92 Room Air 11/14/24 00:36 36.8 C 102 H 16 125/77 92 Room Air 11/13/24 19:20 36.7 C 103 H 14 132/76 93 Room Air PG Care Time/CCT Total # of Minutes Spent Total Time Spent with Patient: Total time spent is greater than 50% in coordination of care (as documented) at patient's floor/unit and/or counseling patient: Coding Level of Care Code 61557 Post Operative Follow-Up Diagnoses Abdominal pain R10.10 Abdominal location: upper abdomen, unspecified Nausea R11.0 (1) Abdominal pain Abdominal location: upper abdomen, unspecified Qualified Code(s): R10.10 - Upper abdominal pain, unspecified
[2024-11-14 07:11] LABS: Basophils # (auto) 0.01 K/uL (0.00-0.20); Basophils % (auto) 0.1 %; Hematocrit (blood only) 36.6 % (42.0-52.0); Hemoglobin 12.6 g/dl (14.0-18.0); Immature Granulocytes # (auto) 0.08 K/uL (0.01-0.20); Immature Granulocytes % (auto) 0.6 %; Lymphocytes # (auto) 1.23 K/uL (1.20-3.40); Lymphocytes % (auto) 9.9 %; Mean Corpuscular Hemoglobin 30.1 pg (25.0-34.0); Mean Corpuscular Hgb Conc 34.4 g/dL (32.0-36.0); Mean Corpuscular Volume 87.4 fL (80.0-100.0); Mean Platelet Volume 11.2 fL (9.4-12.4); Monocytes # (auto) 0.71 K/uL (0.11-0.59); Monocytes % (auto) 5.7 %; Neutrophils # (auto) 10.34 K/uL (1.40-6.50); Neutrophils % (auto) 83.7 %; Platelet Count 172 K/uL (130-400); RDW Coefficient of Variation 11.9 % (11.5-14.5); RDW Standard Deviation 38.5 fL (36.4-46.3); Red Blood Count 4.19 M/uL (4.70-6.10); White Blood Count 12.37 K/ul (4.8-10.8)
[2024-11-14 07:24] LABS: Albumin Globulin Ratio 1.3 (0.9-2); Albumin Level 3.8 gm/dl (3.4-5.0); BUN Creatinine Ratio 14.1 (10-20); Bilirubin,Total 0.8 mg/dl (0.2-1.0); Calcium 8.2 mg/dl (8.6-10.3); Creatinine Clr Calc Pharmacy 182.1 ml/min; Total Protein 6.8 gm/dl (6.0-8.3)
[2024-11-14] MEDS: INFLUENZA VACC TS2024-25(6m+)/PF (IIV3) 0.5mL Syr IM ONE (15:24)
[2024-11-14 15:46] VITALS: O2SAT 95
[2024-11-14 19:20] VITALS: TEMP 98.2
--- NOTE | 2024-11-15 06:13 | Surgery Progress Note ---
Date of Service November 15, 2024 Assessment & Plan (1) Abdominal pain: Plan: -Patient here initially with epigastric abdominal pain and nausea found to have evidence of possible acute appendicitis on admitting CT scan. Patient is POD #2 from laparoscopy with aborted attempted appendectomy by Dr. Fraga. Case was aborted due to findings of frozen abdomen. -Diet advanced to regular, will see how he does with breakfast. -AM labs pending, will continue IV antibiotics for now. If WBC improving patient can likely leave later today. I did discuss post-operative instructions with the patient. -Patient will continue on oral Augmentin at time of discharge (2) Nausea: Admission and Anticipated Discharge Date Admission Date: November 14, 2024 Supervising Physician Co-Signing Physician Notes Patient seen examined, labs reviewed, agree with above. POD #2 attempted laparoscopic appendectomy but aborted due to frozen abdomen, being treated with antibiotics. Tolerated diet, no fevers, sore at incision sites but no other abdominal pain. Afebrile stable vitals, abdomen soft, appropriately tender to palpation. Incisions without infection. WBC normal. DC to home, follow-up with Dr. Fraga as an outpatient. Continue antibiotics Subjective Patient doing well this morning, states he does occasionally have some pain with movement and coughing at the incision sites. Advanced last evening to regular diet, denies any N/V Yesterday patient with slight increase in WBC to 12, am labs currently pending, patient has remained afebrile and continues on IV antibiotics. Physical Exam Constitutional: WD/WN, vitals as above Respiratory: normal respiratory effort, lungs clear to auscultation Cardiovascular: RRR, no murmur, no edema Gastrointestinal (Abdomen): Abdomen soft, nondistended, appropriate TTP over surgical sites. Incisions are c/d/i without any overlying signs of infection Results & Data Vital Signs (Past 12 Hours) Vital Signs Temp Pulse Resp BP Pulse Ox O2 Del Method 11/14/24 19:19 36.8 C 95 H 14 123/85 95 Room Air PG Care Time/CCT Total # of Minutes Spent Total Time Spent with Patient: Total time spent is greater than 50% in coordination of care (as documented) at patient's floor/unit and/or counseling patient: Coding Level of Care Code 31489 Post Operative Follow-Up Diagnoses Abdominal pain R10.10 Abdominal location: upper abdomen, unspecified Nausea R11.0 (1) Abdominal pain Abdominal location: upper abdomen, unspecified Qualified Code(s): R10.10 - Upper abdominal pain, unspecified
[2024-11-15 06:59] VITALS: BP 114/77; PULSE 88; RESP 18
[2024-11-15 07:33] LABS: Basophils # (auto) 0.02 K/uL (0.00-0.20); Basophils % (auto) 0.3 %; Eosinophils # (auto) 0.03 K/uL (0.00-0.50); Eosinophils % (auto) 0.4 %; Hematocrit (blood only) 35.3 % (42.0-52.0); Hemoglobin 12.2 g/dl (14.0-18.0); Immature Granulocytes # (auto) 0.02 K/uL (0.01-0.20); Immature Granulocytes % (auto) 0.3 %; Lymphocytes # (auto) 2.38 K/uL (1.20-3.40); Lymphocytes % (auto) 30.8 %; Mean Corpuscular Hemoglobin 30.3 pg (25.0-34.0); Mean Corpuscular Hgb Conc 34.6 g/dL (32.0-36.0); Mean Corpuscular Volume 87.8 fL (80.0-100.0); Mean Platelet Volume 11.2 fL (9.4-12.4); Monocytes # (auto) 0.46 K/uL (0.11-0.59); Neutrophils # (auto) 4.81 K/uL (1.40-6.50); Neutrophils % (auto) 62.2 %; Platelet Count 210 K/uL (130-400); Red Blood Count 4.02 M/uL (4.70-6.10); White Blood Count 7.72 K/ul (4.8-10.8)
[2024-11-15 07:51] LABS: BUN Creatinine Ratio 13.3 (10-20); Calcium 8.3 mg/dl (8.6-10.3); Creatinine Clr Calc Pharmacy 172.4 ml/min; Potassium 3.5 mmol/L (3.5-5.1)
--- NOTE | 2024-11-16 13:56 | Discharge Summary ---
Date of Service November 15, 2024 Principal Diagnosis acute appendicitis Discharge Exam awake/alert, no distress Respiratory normal respiratory effort Gastrointestinal (Abdomen) Inspection/Auscultation: + abdominal surgical incision (c/d/i with skin glue, no signs of infection ) Percussion/Palpation: + abdomen tender (expected betzy incisional discomfort) and abdomen soft Discharge Data Allergies Allergy/AdvReac Type Severity Reaction Status Date / Time No Known Allergies Allergy Verified 11/11/24 08:30 Consultations 11/11/24 09:25 Consult General Surgery Stat Procedures Performed Operation Date: 11/13/24 07:00 Actual Procedures p Laparoscopy with aborted attempted appendectomy(Not Applicable) - Bob Fraga, Ordered Studies 11/11/24 07:06 CT abd pelvis IV con only Stat 11/11/24 10:29 US RUQ [US liver] Stat 11/12/24 09:39 MR MRCP Urgent 11/12/24 21:02 CT Abd and Pelvis [CT abd pelvis IV con only] Stat Hospital Course (1) Acute appendicitis: This is a 29yM who presented to the [facility] ED on 11/11/24 with complaints of epigastric abdominal pain and nausea. Workup in the ER with a CT a/p reported a dilated tip of appendix measuring 13 mm in caliber and showing appendicolith in its non dilated segment suggesting tip appendicitis. WBC 5. Patient without any localized pain in the RLQ or umbilical regions. His pain was worse to palpation in the epigastric region. Options discussed with patient and it was agreed upon to admit the patient for observation. Given location of pain, we ordered a RUQ US which revealed no gallstones, evidence of cholecystitis, or biliary ductal dilation. He was kept NPO and off abx while monitoring his symptoms. On 11/12 patient felt mildly better overall compared to admission. His wbc remained normal but his Total bilirubin jumped from normal to 1.6. Due to this we ordered an MRCP which was negative for choledocholithiasis or biliary ductal dilation. He remained without localized ttp in the RLQ. His diet was advanced to clears. Then later in the evening the patient developed some RLQ discomfort in addition to running some low grade temperatures. Because of his pain and temperatures decision was made to repeat his CT scan. CT scan showed increased inflammatory changes and fluid along the appendix in the right lower quadrant. Appendicolith in the appendix but findings are concerning for acute appendicitis. Once CT scan was reported the patient was made NPO and started on IV zosyn. Decision was made to proceed with laparoscopic appendectomy the next AM. On 11/13 the patient went to the OR and ultimately underwent an aborted laparoscopic appendectomy with dr. fraga. 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 Because of this the decision was made to abort and treat patient's appendicitis with antibiotics and supportive care. Post operatively the patient's diet was slowly advanced to clears to eventually low fiber. His pain remained in control overall and his betzy incisional discomfort was managed with prn pain meds. On 11/15 his WBC was 7 along with his LFTs were normalized by (11/14). He was afebrile. Incisions c/d/i. Decision was made to send the patient home on a course of oral antibiotics to complete at least a 2 weeks course and follow up in the office with Dr. Fraga as an outpatient. Patient expressed understanding and was deemed stable for discharge on 11/15/24. Total Time Total Time Spent Total Time Spent (In Minutes): 20 Discharge Plan Discharge Items Patient Disposition: Home - Self-Care Reason For Visit: ABD PAIN Discharge Diagnosis: acute appendicitis aborted laparoscopic appendectomy Condition on Discharge: Good Activity: Per Instructions section Lifting: No more than 10 pounds Bathing Comment: You may shower. No soaking in bath tubs, hot tubs, or pools x 2 weeks Exercise/Sports: Wait until after follow-up appointment Driving/Machine Use: no driving while taking narcotics for pain Non-emergency contact: Surgeon Call non-emergency contact if: you have any medication questions, your symptoms worsen, your pain is not controlled, your pain is worsening, you have a fever, your temperature is above 101.5, your wound has increased redness, your wound has increased drainage and your wound pain has increased Follow-up/Referrals: Bob Fraga, DO [Surgeon] - (please call to schedule follow up in the office within 2 weeks) PCP,NO [Primary Care Provider] - Diet: Regular Addtl Attending Provider Instructions: SPECIAL CARE INSTRUCTIONS: * You have skin glue over your incisions called dermabond. you may shower with this on. It will tend to dissolve and fall off within a couple weeks. Do not pick at the skin glue * You may shower however NO soaking in pools or baths for 2 weeks * No lifting greater than 10lbs. No strenuous exercise until cleared by surgeon. Light walking is accepted. * No driving while taking narcotic pain medication; wait at least 3 days * No drinking alcohol while taking narcotic pain medication * Please complete the full course of antibiotic * May use Ibuprofen/Tylenol over the counter for pain as tolerated. Do not exceed 3grams of Tylenol per 24 hours * Expect some swelling and bruising. * Diet- you may resume your regular diet Call your doctor if: * Temperature above 101 degrees, nausea/vomiting, fever/chills * Pain not relieved by pain medicine ordered * There is increased drainage or redness from any incision * You have any unanswered questions or concerns [phone]. FOLLOW UP VISIT: If not already scheduled, please call the office for a follow-up visit. Office Pending Studies at Discharge: No Stand-Alone Forms: My [facility], Smoking Cessation Medications and DC Order Prescriptions: New oxycodone 5 mg tablet 5 - 10 mg PO .[id number] PRN (Reason: pain, for initial therapy, max 6 tabs per day) Qty: 15 0RF amoxicillin-pot clavulanate 875-125 mg tablet 1 tab PO Q12H 14 Days Qty: 28 0RF Continued loratadine [Claritin] 10 mg Tablet 10 mg PO DAILY PRN (Reason: Congestion) Discharge Orders: Discharge Order (Routine); Ordered 11/15/24 Ordered By: Josue Serna Admission Data Admit Date/Time: 11/14/24 23:13 Attending Provider: Bob Fraga Admit Provider: Bob Fraga Primary Care Provider: PCP,NO Other Providers: Bob Fraga Other Interventions: Discharge Summary Assessment (RN) Last Done: 11/15/24 11:07 Coding Level of Care Code 71278 IN/OBS DISCH 30 MIN/LESS Diagnoses Acute appendicitis K35.80
== END 2024-11-15 12:18 | disposition home or self-care (01) ==
LOC: EDINP 06:15 → ED 06:15 → EDINP 15:07 → 3W 15:50